=== PATIENT | female | born 2000 | race Caucasian/White ===

== ENCOUNTER 2021-01-03 13:45 | Emergency (ER) | payer OTHER, MEDICAID, SELFPAY ==
[2021-01-03 14:46] VITALS: BP 120/73; PULSE 92; RESP 20; TEMP 36.9; O2SAT 99; BMI 26.5
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
== END 2021-01-03 15:25 | disposition home or self-care (01) ==
LOC: HO.ED 15:15
PROVIDERS: Emergency Provider Emergency Medicine; PCP Internal Medicine
DX: S16.1XXA Strain of muscle, fascia and tendon at neck level, initial encounter (principal); M54.2 Cervicalgia; V43.52XA Car driver injured in collision with other type car in traffic accident, initial encounter; Y93.9 Activity, unspecified; Y92.410 Unspecified street and highway as the place of occurrence of the external cause; Y99.9 Unspecified external cause status
CPT/HCPCS: 99283

== ENCOUNTER 2021-09-15 10:40 | Outpatient (REF) | payer MEDICAID, SELFPAY ==
[2021-09-15 11:55] LABS: COVID-19 Test Positive (Negative); IDNOW Serial# 16C4AD1C
== END 2021-09-15 10:41 | disposition home or self-care (01) ==
LOC: HO.LAB 10:40
PROVIDERS: Visit Provider Internal Medicine
DX: Z20.822 Contact with and (suspected) exposure to COVID-19 (principal)
CPT/HCPCS: 36415; 87635; C9803